=== PATIENT | male | born 1970 | race Two or more races ===

== ENCOUNTER → 2016-05-23 | Outpatient (CLI) | payer OTHER ==
--- NOTE | ~2016-05-23 | CT57 ---
[facility] A Service of [facility] RADIOLOGY TEXT RESULTS PATIENT: DAVID ARAGON LOCATION: [facility] : 72 UNIT #: [id number] AGE: [address]: Izabela Grier SEX: M ORDER DR: [id number] [facility]. [place], [place] [address] [id number] MR#: [id number] Acc #: [id number] NAME: DAVID ARAGON : 1970 SEX: M STUDY DATE/TIME: 05/23/2016 10:22 UNIT: [facility] ROOM: STUDY DESCRIPTION: CT Chest Wo Cont Attending Physician: Izabela Grier A.P.R.N. Referring Physician: Izabela Grier A.P.R.N. Ordering Physician: Izabela Grier A.P.R.N. Primary Care Physician: [facility], [facility] MEDICAL IMAGING REPORT This report is preliminary unless electronic signature is present EXAM CT chest INDICATIONS Chest pain. Pleural effusion. Chronic pneumothorax. TECHNIQUE CT of the thorax without contrast. Coronal and sagittal reconstructions were obtained. This CT exam was performed with one or more of the following radiation dose reduction techniques: Automatic exposure control, adjustment of mA and/or kV according to patient size, and iterative reconstruction. COMPARISON None available. FINDINGS The left lung is clear. There is some mild parenchymal and pleural scarring in the right lung base. Mild pleural thickening measures up to 0.9 cm. There is no pleural nodularity identified. Central airways are patent. No pathologically enlarged mediastinal or hilar lymph nodes. Cardiac size is normal. Thoracic aorta is normal in caliber. Limited images of the upper abdomen were obtained. There is no acute findings. No acute osseous abnormalities. IMPRESSION 1. No acute findings in the chest. 2. Mild pleural thickening with some associated parenchymal scarring/atelectasis in the right lung base. This results in volume loss in both the right middle lobe and the right lower lobe. [facility] A Service of [facility] RADIOLOGY TEXT RESULTS PATIENT: DAVID ARAGON LOCATION: [facility] : 72 UNIT #: [id number] AGE: [address]: Izabela Grier SEX: M ORDER DR: Dictated by... Taiwo Barker M.D. THIS IS AN ELECTRONICALLY VERIFIED REPORT Taiwo Barker M.D. at 05/24/2016 9:02 AM C/emperatriz TD: 05/23/2016 23:28 JOB #: [id number] MEDICAL IMAGING REPORT Page 1 of 1 COPY
== END | disposition home or self-care (01) ==
LOC: CCAT 09:40
DX: J90 Pleural effusion, not elsewhere classified (principal); A15.0 Tuberculosis of lung; R07.9 Chest pain, unspecified; J92.9 Pleural plaque without asbestos
CPT/HCPCS: 71250

== ENCOUNTER → 2016-10-24 | Outpatient (CLI) | payer OTHER | END | disposition home or self-care (01) | LOC: CRC 09:39 | DX: R06.02 Shortness of breath (principal) | CPT/HCPCS: 94060; 94726; 94729 ==